=== PATIENT | male | born 1955 | race Caucasian/White ===

== ENCOUNTER 2020-10-30 09:37 | Outpatient (REF) | payer MEDICARE, SELFPAY ==
[2020-10-30 11:06] LABS: MANUAL DIFF FLAG NO
[2020-10-30 11:17] LABS: Basophils Absolute Auto 0.1 X10*3/uL (0.0-0.2); Basophils Percent Auto 1.4 % (0-2); Eosinophils Absolute Auto 0.3 X10*3/uL (0.0-0.4); Eosinophils Percent Auto 8.2 % (0-4); Hematocrit 38.9 % (42-52); Hemoglobin 12.9 g/dl (14.0-18.0); Lymphocytes Absolute Auto 1.1 X10*3/uL (1.2-4.9); Lymphocytes Percent Auto 30.5 % (20-40); Mean Corpuscular HGB Conc 33.2 g/dl (31.0-36.0); Mean Corpuscular Hemoglobin 30.8 pg (27.0-33.0); Mean Corpuscular Volume 92.8 fL (80-98); Mean Platelet Volume 9.3 fL (9.4-12.4); Monocytes Absolute Auto 0.4 X10*3/uL (0.1-1.2); Monocytes Percent Auto 11.3 % (2-11); Neutrophils Absolute Auto 1.8 X10*3/uL (2.0-8.3); Neutrophils Percent Auto 48.6 % (45-73); Platelet Count 221 X10*3/uL (160-400); Red Blood Count 4.19 X10*6/uL (4.60-5.80); Red Cell Distribution Width 13.6 % (11.0-16.0); White Blood Count 3.6 X10*3/uL (4.8-10.8)
[2020-10-30 11:26] LABS: Estimated Average Glucose 108 mg/dL; Hemoglobin A1c % 5.4 %
[2020-10-30 11:40] LABS: Alanine Aminotransferase 24 U/L (0-40); Albumin Level 4.4 g/dL (3.5-5.0); Alkaline Phosphatase 38 U/L (39-117); Amylase 50 U/L (28-100); Anion Gap 11 (12-20); Aspartate Amino Transferase 28 U/L (5-37); Bilirubin Total 0.6 mg/dL (0.0-1.0); Blood Urea Nitrogen 15 mg/dL (9-16); Calcium 9.2 mg/dL (8.4-10.2); Carbon Dioxide 25 mmol/L (22-29); Chloride 107 mmol/L (96-108); Cholesterol 183 mg/dL; Estimated Glomerular Filt Rate > 60; Glucose Fasting 98 mg/dL (60-99); HDL Cholesterol 56 mg/dL; LDL Cholesterol Calculated 96 mg/dl; Lipase 47 U/L (8-78); Potassium 4.5 mmol/L (3.3-5.1); Sodium 138 mmol/L (135-145); Total Protein 7.2 g/dL (6.5-8.0); Triglycerides 157 mg/dL
[2020-10-30 12:01] LABS: Prostate Specific Antigen 1.46 ng/mL (<0.05-4.0)
== END 2020-10-30 09:38 | disposition home or self-care (01) ==
LOC: HO.MANLDS 09:37
PROVIDERS: PCP Internal Medicine; Visit Provider Physician Assistant
DX: Z12.5 Encounter for screening for malignant neoplasm of prostate (principal); I10 Essential (primary) hypertension; N40.0 Benign prostatic hyperplasia without lower urinary tract symptoms; E78.2 Mixed hyperlipidemia
CPT/HCPCS: 36415; 80053; 80061; 82150; 83036; 83690; 84153; 85025

== ENCOUNTER → 2020-11-09 10:05 | Outpatient (BNVA) | payer MEDICARE, SELFPAY | PROVIDERS: PCP Internal Medicine; Referring Provider Internal Medicine Gastroenterology; Visit Provider Surgery | DX: K43.9 Ventral hernia without obstruction or gangrene (principal) | CPT/HCPCS: 99202 ==

== ENCOUNTER 2020-11-21 09:16 | Day surgery (SDC) | payer MEDICARE, SELFPAY ==
[2020-11-15 13:09] VITALS: BMI 31.9
--- NOTE | 2020-11-20 08:27 | HO.ANESPROP2 ---
Documented by User: Perla Dunlap 11/20/20 08:28 HPI - Anesthesia Eval Consult details Narrative: 65yo M for Hernia Repair Ventral with Mesh PMFSH Active Problems Active Problems: All Active Problems (Updated 11/15/20 @ 13:05 by Kenya Langley) Ventral hernia (Acute) Past Medical History Medical History (Updated 11/15/20 @ 13:05 by Kenya Langley) Asthma GERD (gastroesophageal reflux disease) History of Mane's esophagus Hypercholesterolemia Hypertension Surgical History Surgical History (Updated 11/15/20 @ 13:02 by Kenya Langley) H/O colonoscopy History of deviated nasal septum History of esophagogastroduodenoscopy (EGD) Hx of cataract surgery Social History Social History Alcohol intake: current Alcohol intake frequency: holidays/special occasions only Patient Tobacco Use Status: Never used Tobacco Second Hand Smoke Exposure: No Use of substances other than those prescribed or required for medical reasons: No Are you DNR?: No Advance Directives: No Advance Directives Information Provided: Yes Advance Directives on File: No Meds Allergies Allergy/AdvReac Type Severity Reaction Status Date / Time No Known Allergies Allergy Unverified 09/25/20 12:35 Home Medications Medication Instructions Recorded Confirmed Last Taken Type albuterol sulfate 90 mcg/actuation 90 mcg INHALATION Q4H PRN 11/09/20 11/15/20 Unknown History aerosol inhaler lansoprazole 30 mg capsule,delayed 30 mg PO DAILY 11/09/20 11/15/20 Unknown History release lisinopril 5 mg tablet 5 mg PO DAILY 11/09/20 11/15/20 11/21/20 History lorazepam 0.5 mg tablet 0.5 mg PO BID PRN 11/09/20 11/15/20 Unknown History montelukast 10 mg tablet 10 mg PO DAILY 11/09/20 11/15/20 Unknown History simvastatin 40 mg tablet 40 mg PO BEDTIME 11/09/20 11/15/20 Unknown History Exam Exam Date and Time: November 20, 202027 Height,Weight and Vital Signs: Height 5 ft 9 in Weight 98.2 kg Pertinent Lab Results Pertinent Lab Results: Laboratory Tests 10/30/20 10/30/20 09:42 09:42 WBC 3.6 L Hgb 12.9 L Hct 38.9 L Plt Count 221 Sodium 138 Potassium 4.5 Chloride 107 Carbon Dioxide 25 BUN 15 Creatinine 0.89 Assessment and Plan Assessment Anesthesia Assessment: Chart Reviewed Documented by User: Robert Thibodeaux MD 11/21/20 11:04 [facility] Past Medical History Medical History (Updated 11/15/20 @ 13:05 by Kenya Langley) Asthma GERD (gastroesophageal reflux disease) History of Mane's esophagus Hypercholesterolemia Hypertension Family History Family history of problems with anesthesia: No Surgical History Surgical History (Updated 11/15/20 @ 13:02 by Kenya Langley) H/O colonoscopy History of deviated nasal septum History of esophagogastroduodenoscopy (EGD) Hx of cataract surgery History of Problems with Anesthesia: No Social History Social History Alcohol intake: current Alcohol intake frequency: holidays/special occasions only Patient Tobacco Use Status: Never used Tobacco Second Hand Smoke Exposure: No Use of substances other than those prescribed or required for medical reasons: No Are you DNR?: No Advance Directives: No Advance Directives Information Provided: Yes Advance Directives on File: No Meds Allergies Allergy/AdvReac Type Severity Reaction Status Date / Time No Known Allergies Allergy Unverified 09/25/20 12:35 Home Medications Medication Instructions Recorded Confirmed Last Taken Type albuterol sulfate 90 mcg/actuation 90 mcg INHALATION Q4H PRN 11/09/20 11/15/20 Unknown History aerosol inhaler lansoprazole 30 mg capsule,delayed 30 mg PO DAILY 11/09/20 11/15/20 Unknown History release lisinopril 5 mg tablet 5 mg PO DAILY 11/09/20 11/15/20 11/21/20 History lorazepam 0.5 mg tablet 0.5 mg PO BID PRN 11/09/20 11/15/20 Unknown History montelukast 10 mg tablet 10 mg PO DAILY 11/09/20 11/15/20 Unknown History simvastatin 40 mg tablet 40 mg PO BEDTIME 11/09/20 11/15/20 Unknown History Exam Airway Mallampati Class: II TM Dist: <=3cm Neck ROM: Full Loose/Missing/Broken Teeth: No Heart: ok Lungs: clear Assessment and Plan Assessment Anesthesia Assessment: Anesthesia Plan Discussed and Chart Reviewed Final Anesthetic Review NPO: Yes ASA Class: II Final Preanesthetic Review: No Changes in Pt Med Stat, Meds/Allgs Chart Reviewed, Consent Obtained/Reviewed and Anes Risks/Benef Reviewed Patient Risk: Intermediate Procedure Risk: Low Anesthetic Plan Anesthetic Plan: GA and Agree w/ Assess. and Plan Disposition: Standard PACU
[2020-11-21] VITALS (8 sets, daily range): BP systolic 117–143; BP diastolic 64–80; PULSE 60–82; RESP 9–18; TEMP 36.7–36.9; O2SAT 96–97
[2020-11-21] MEDS: ceFAZolin Sodium/Dextrose,Iso 2 GM/50 ML PIGGYBACK IV (10:08)
[2020-11-21] MEDS: Lactated Ringers 1,000 ML 100 ML IVCONT (10:08)
--- NOTE | 2020-11-21 10:26 | MHC.SHP ---
Pre-Procedural Eval Section A Date of Service: 11/21/20 The patient is an INPATIENT: No Changes since office visit: Yes Patient answered all questions; No Cold of Flu in the past 2 weeks, No New Medical Problems and No Changes in Medication The History & Physical has been completed within 30 days and I have reviewed it.: Yes Section B Chief Complaint: Ventral Hernia Allergies: Allergies Allergy/AdvReac Type Severity Reaction Status Date / Time No Known Allergies Allergy Unverified 09/25/20 12:35 Plan Diagnosis/Plan: Unchanged I have reviewed the history and physical and performed a pertinent physical examination on my patient. No changes have occurred unless specified.
--- NOTE | 2020-11-21 11:37 | P.OP_ITS ---
Operative Note Operative Note Date of Service: 11/21/20 Narrative: Preoperative diagnosis: Ventral hernia Postoperative diagnosis: Same Procedure: Repair of ventral hernia with mesh Surgeon: Haroldo Hand MD Outside Barrel Lathe Operator: No physician Anesthesia: General LMA Indications for procedure: 65-year-old male patient presenting with a palpable lump above the umbilicus which increases in size with lifting and straining. Patient is found to have a palpable hernia which increases with Valsalva maneuvers and is reducible with light pressure. There is minimal tenderness to palpation. Operative findings: 4 cm ventral hernia located approximately 2 cm above the umbilicus repaired with an 8 cm round Ventralex mesh Specimen: None Estimated blood loss: 5 mL Complications: None Procedure details: Patient was brought to the OR placed in a supine position. After administering general anesthesia the patient's abdomen was prepped with ChloraPrep and draped in sterile fashion. A surgical time-out was called the consent confirmed. Patient received preoperative antibiotics and Venodyne boots were in place. Local anesthesia consisting of 0.25% Sensorcaine with epinephrine was infiltrated in the midline above the umbilicus. Incision was then made with a 15 blade and carried down through subcutaneous tissue up to the hernia sac. The hernia sac was then dissected down to the fascial defect. The hernia sac was reduced into the abdominal cavity. No bowel was noted within the hernia sac. A preperitoneal space was then created using combination of blunt sharp dissection. Hemostasis was assured using electrocautery. A space measuring approximately 8 cm round was then created. An 8 cm round Ventralex mesh was then obtained. This was placed in the preperitoneal space. Was secured in 4 quadrants using 1 Tycron suture. The fascia was then closed over the mesh incorporating the mesh in the closure using [id number] 1 Tycron suture wounds were then irrigated with saline solution suctioned dry. Additional local was infiltrated into the fascia and subcutaneous tissue. Deep subcutaneous tissue was closed using interrupted 3-0 Polysorb sutures. Dermis was reapproximated using interrupted 3-0 Polysorb sutures. Skin was then closed using a running subcuticular 4-0 Polysorb suture. Surgical glue was then applied. Dry sterile dressings were then applied. The patient tolerated the procedure well. Sponge, instrument, needle counts reported as correct. The patient was transferred to PACU in stable condition.
[2020-11-21] MEDS: Acetaminophen 325 MG TABLET 650 MG PO (11:54)
[2020-11-21] MEDS: oxyCODONE HCl Immed Release 5 MG TABLET 10 MG PO (11:55)
== END 2020-11-21 13:30 | disposition home or self-care (01) ==
PROVIDERS: PCP Internal Medicine; Visit Provider Surgery
PROC: (CPT 49560; principal; 2020-11-21 10:50)
DX: K43.9 Ventral hernia without obstruction or gangrene (principal); K21.9 Gastro-esophageal reflux disease without esophagitis; Z87.19 Personal history of other diseases of the digestive system; I10 Essential (primary) hypertension; J45.909 Unspecified asthma, uncomplicated; Z79.899 Other long term (current) drug therapy
CPT/HCPCS: 49560; 49568; C1781; J0690; J1100; J2405; J3010

== ENCOUNTER → 2020-11-30 10:38 | Outpatient (BNVA) | payer MEDICARE, SELFPAY | PROVIDERS: PCP Internal Medicine; Visit Provider Surgery | DX: Z48.815 Encounter for surgical aftercare following surgery on the digestive system (principal); L76.34 Postprocedural seroma of skin and subcutaneous tissue following other procedure; Z87.19 Personal history of other diseases of the digestive system | CPT/HCPCS: 99212 ==

== ENCOUNTER → 2020-12-13 15:41 | Outpatient (BNVA) | payer MEDICARE, SELFPAY | PROVIDERS: PCP Internal Medicine; Visit Provider Surgery | DX: Z48.815 Encounter for surgical aftercare following surgery on the digestive system (principal); Z87.19 Personal history of other diseases of the digestive system | CPT/HCPCS: 99212 ==

== ENCOUNTER → 2021-01-15 10:45 | Outpatient (BNVA) | payer MEDICARE, SELFPAY | PROVIDERS: PCP Internal Medicine; Visit Provider Surgery | DX: K43.9 Ventral hernia without obstruction or gangrene (principal); K22.70 Barrett's esophagus without dysplasia; K21.9 Gastro-esophageal reflux disease without esophagitis; E78.00 Pure hypercholesterolemia, unspecified; I10 Essential (primary) hypertension | CPT/HCPCS: 99212 ==

== ENCOUNTER → 2022-01-01 06:45 | Outpatient (REF) | payer MEDICARE, SELFPAY ==
--- NOTE | 2022-01-01 06:48 | HM_ITS ---
Conclusion: 1. Patient was monitored for total period of 2 days and 15 hours 2. Baseline rhythm is normal sinus with average heart of 75 beats per minute 3. No significant pauses or bradycardia noted 4. Seven short episodes of supraventricular runs, longest lasting 10 beats at 134 beats per minute 5. Rare ectopy, both PACs and PVCs noted 6. No patient reported events MTDD
[2022-01-01 07:27] LABS: MANUAL DIFF FLAG NO
[2022-01-01 07:52] LABS: Basophils Absolute Auto 0.1 X10*3/uL (0.0-0.2); Basophils Percent Auto 0.9 % (0-2); Eosinophils Absolute Auto 0.3 X10*3/uL (0.0-0.4); Eosinophils Percent Auto 6.1 % (0-4); Hematocrit 40.8 % (42.0-52.0); Hemoglobin 13.5 g/dl (14.0-18.0); Imm Gran Abs Auto 0.01 X10*3/uL (0.00-0.03); Imm Gran Pct Auto 0.2 % (0.0-0.4); Lymphocytes Absolute Auto 1.5 X10*3/uL (1.2-4.9); Lymphocytes Percent Auto 26.1 % (20-40); Mean Corpuscular HGB Conc 33.1 g/dl (31.0-36.0); Mean Corpuscular Hemoglobin 31.3 pg (27.0-33.0); Mean Corpuscular Volume 94.4 fL (80.0-98.0); Mean Platelet Volume 9.3 fL (9.4-12.4); Monocytes Absolute Auto 0.6 X10*3/uL (0.1-1.2); Monocytes Percent Auto 11.4 % (2-11); Neutrophils Absolute Auto 3.1 x10*3/uL (2.0-8.3); Neutrophils Percent Auto 55.3 % (45-73); Platelet Count 204 X10*3/uL (160-400); Red Blood Count 4.32 X10*6/uL (4.60-5.80); Red Cell Distribution Width 12.9 % (11.0-16.0); White Blood Count 5.6 X10*3/uL (4.8-10.8)
[2022-01-01 08:06] LABS: Alanine Aminotransferase 20 U/L (0-40); Albumin Level 4.1 g/dL (3.5-5.0); Alkaline Phosphatase 42 U/L (39-117); Anion Gap 13 (12-20); Aspartate Amino Transferase 26 U/L (5-37); Bilirubin Total 0.6 mg/dL (0.0-1.0); Blood Urea Nitrogen 16 mg/dL (9-16); Carbon Dioxide 28 mmol/L (22-29); Chloride 105 mmol/L (96-108); Cholesterol 191 mg/dL; Estimated Glomerular Filt Rate > 60; Glucose Random 98 mg/dL (60-115); HDL Cholesterol 65 mg/dL; LDL Cholesterol Calculated 105 mg/dl; Potassium 4.8 mmol/L (3.3-5.1); Sodium 141 mmol/L (135-145); Total Protein 7.2 g/dL (6.5-8.0); Triglycerides 106 mg/dL
== END ==
LOC: HO.CARD 06:45
PROVIDERS: PCP Internal Medicine; Visit Provider Physician Assistant
DX: R00.2 Palpitations (principal); E78.5 Hyperlipidemia, unspecified
CPT/HCPCS: 36415; 80053; 80061; 85025; 93242

== ENCOUNTER 2022-02-11 07:09 | Outpatient (REF) | payer MEDICARE, SELFPAY ==
[2022-02-11 08:47] LABS: Prostate Specific Antigen 1.32 ng/mL (<0.05-4.0)
== END 2022-02-11 07:10 | disposition home or self-care (01) ==
LOC: HO.LAB 07:09
PROVIDERS: Physician Assistant; PCP Internal Medicine; Visit Provider Internal Medicine
DX: Z12.5 Encounter for screening for malignant neoplasm of prostate (principal)
CPT/HCPCS: 36415; 84153

== ENCOUNTER → 2022-02-13 14:31 | Outpatient (BNVA) | payer MEDICARE, SELFPAY | PROVIDERS: PCP Internal Medicine; Referring Provider Physician Assistant; Visit Provider Internal Medicine | DX: R00.2 Palpitations (principal); I49.1 Atrial premature depolarization; I49.3 Ventricular premature depolarization | CPT/HCPCS: 93005; 99202 ==

== ENCOUNTER → 2022-04-10 08:21 | Outpatient (REF) | payer MEDICARE, SELFPAY ==
--- NOTE | 2022-04-10 08:24 | CA_ITS ---
Transthoracic Echocardiogram Patient (Last, First, Middle): Chris Zavala R Gender: Male Date of : 1955 Age: 67 Procedure Date: 04/10/2022 Procedure Type: Transthoracic Echocardiogram Location: OP Height: 175.26 cm Weight: 93.9 kg BSA: 2.10 m2 Heart Rate: bpm BP: 128 / 80 mmHg Chemical Plant Operator Supervisor: SHERI Referring MD: Wesley Roe MD Rodeo Clown: Danish Spain MD Symptoms: R00.2 - Palpitations Study Quality: Adequate ECG Rhythm: Sinus Conclusions: - 1. Normal LV systolic function with impaired relaxation filling pattern with possible basal inferior wall motion abnormality 2. Fibrocalcific aortic valve changes noted with moderate mitral and calcification with normal cardiac valvular Doppler 3. Normal RV systolic pressure 4. No gross pericardial effusion Findings Left Ventricle Normal left ventricular size, thickness, and systolic function. The visually estimated ejection fraction is between 60-65%. Spectral Doppler is indicative of an impaired relaxation filling pattern. E/E prime ratio is between 8 and 15 consistent with indeterminate filling pressures. Peak GLS is -21.1%, within normal limits. Wall Motion Rest Echo Findings The basal inferior segment is hypokinetic. All other scored wall segments showed normal motion. Right Ventricle Normal right ventricular cavity size and systolic function. Atria The left atrium is mildly dilated. There is lipomatous hypertrophy of the interatrial septum. There is no evidence of interatrial shunt. The right atrium is normal in size. Aortic Valve There is mild calcification of the aortic valve. There is no aortic valve stenosis. There is no aortic valve regurgitation. Mitral Valve There is mild anterior and moderate posterior mitral leaflet thickening. There is moderate mitral annular calcification. There is trace mitral valve regurgitation. There is no mitral valve stenosis. Tricuspid Valve Normal tricuspid valve structure. There is trace tricuspid valve regurgitation. The right ventricular systolic pressure is normal. The right ventricular systolic pressure is 20 mmHg. Normal right atrial pressure. There is no evidence of pulmonary hypertension. Great Vessels All visible segments of the aorta are normal in size. The pulmonary artery was not well visualized. Venous The inferior vena cava is normal in size and collapses greater than 50% with inspiration. Pericardium/Pleural There is no evidence of pericardial effusion. Prior Study Comparison No prior study available for comparison. Measurements 2D Linear Measurements IVSd: 0.93 0.6-0.9/0.6-1.0 cm LVIDd: 4.63 3.9-5.3/4.2-5.9 cm LVIDd Index: 2.20 2.4-3.2/2.2-3.1 cm/m2 LVIDs: 3.16 2.0-3.6 cm LVPWd: 0.85 0.7-1.1 cm LA Diam: 2.30 2.7-3.8/3.0-4.0 cm LAIDs Index: 1.10 1.5-2.3 cm/m2 LV Mass: 170.81 67-162/88-224 g LV Mass Index: 81.34 43-95/49-115 g/m2 LVOT Diam: 2.10 3.0+(-)1.3 cm 2D Systolic Function EF 4C: 59.40 >55% EF 2C: 61.80 >55% EF BiP: 61.10 >55% Mitral Valve MV Pk E: 1.10 MV PK A: 1.01 MV Decel Time: 239.00 E/A: 1.10 E'Lateral: 9.79 E'Medial: 8.81 E/E' Med: 12.50 E/E' Lat: 11.20 PHT: 70.00 MVA PHT: 3.14 Decel Summers: 4.59 Aortic Valve AoV Pk Juan: 1.69 AoV Mn Juan: 1.10 AoV VTI: 0.37 AoV Pk Grad: 11.00 Aov Mn Grad: 6.00 JAIME Cont.VTI: 2.81 LVOT LVOT Pk Juan: 1.24 LVOT Mn Juan: 0.88 LVOT VTI: 0.30 LVOT Pk Grad: 6.00 LVOT Mn Grad: 4.00 LVOT Diam: 2.10 LVOT Area: 3.46 Diastolic Function MV Pk E: 1.10 MV Pk A: 1.01 E/A: 1.10 E'Medial: 8.81 E/E' Med: 12.50 E' Laterial: 9.79 E/E' Lat: 11.20 Right Ventricle TAPSE (mm): 29.10 TVS' Juan: 16.60 Tricuspid Valve TR Pk Juan: 2.09 TR Pk Grad: 17.00 RA Press: 3.00 RVSP: 20.00 Great Vessels Aorta Sinus of Valsalva: 3.58 2.0-3.[address] [place]: 2.51 1.7-3.4 cm Ao Asc: 3.30 2.1-3.4 cm Updated in Other Vendor System with Status of Final Danish Spain MD electronically signed on 04/10/2022 9:36:04 AM with status of Final
== END ==
LOC: HO.CARD 08:21
PROVIDERS: Visit Provider Internal Medicine
DX: R00.2 Palpitations (principal)
CPT/HCPCS: 93306

== ENCOUNTER 2022-04-29 09:30 | Day surgery (SDC) | payer MEDICARE, SELFPAY ==
[2022-04-29 09:43] VITALS: BMI 30.2
[2022-04-29] MEDS: Lactated Ringers 1,000 ML 50 ML IVCONT (10:05)
--- NOTE | 2022-04-29 10:26 | P.CONAN_ITS ---
HPI - Anesthesia Eval Consult details Narrative: 67 yo make patient for EGD, Colonoscopy [facility] Active Problems Active Problems: All Active Problems (Updated 02/13/22 @ 15:24 by Wesley Roe MD) Ventral hernia (Acute) Seroma after procedure (Acute) Heart palpitations (Acute) PAC (premature atrial contraction) (Acute) PVC (premature ventricular contraction) (Acute) Increased BMI Past Medical History Medical History Asthma GERD (gastroesophageal reflux disease) History of Mane's esophagus Hypercholesterolemia Hypertension Family History Family History Brother Atrial fibrillation Father No problems noted. Mother No problems noted. Family history of problems with anesthesia: No Surgical History Surgical History H/O colonoscopy History of deviated nasal septum History of esophagogastroduodenoscopy (EGD) History of tonsillectomy Hx of cataract surgery S/P ventral herniorrhaphy (11/21/20) History of Problems with Anesthesia: No Social History Social History Alcohol intake: current Alcohol intake frequency: holidays/special occasions only Patient Tobacco Use Status: Former Tobacco user Quit Date: 1990 Years Smoked: 30 +/- Second Hand Smoke Exposure: No Are you DNR?: No Advance Directives: No Advance Directives Information Provided: Yes Nutrition Risks: No Nutritional Risk Meds Allergies Allergy/AdvReac Type Severity Reaction Status Date / Time No Known Allergies Allergy Verified 04/29/22 09:55 Active Medications: Current Medications Lactated Ringer's (Lr) 1,000 mls @ 50 mls/hr IVCONT .Q20H AMIRA Last Admin: 04/29/22 10:05 Dose: 50 mls/hr Home Medications Medication Instructions Recorded Confirmed Last Taken Type albuterol sulfate 90 mcg/actuation 90 mcg inhalation Q4H PRN Wheezing 11/09/20 04/29/22 Unknown History aerosol inhaler lansoprazole 30 mg capsule,delayed 30 mg PO DAILY 11/09/20 04/29/22 Unknown History release lisinopril 5 mg tablet 5 mg PO DAILY 07/07/0104/29/22 04/29/22 History lorazepam 0.5 mg tablet 0.5 mg PO BID PRN Anxiety 11/09/20 04/29/22 Unknown History montelukast 10 mg tablet 10 mg PO DAILY 11/09/20 04/29/22 Unknown History simvastatin 40 mg tablet 40 mg PO BEDTIME 11/09/20 04/29/22 Unknown History metoprolol succinate 25 mg 25 mg PO DAILY 02/13/22 04/29/22 Unknown History tablet,extended release 24 hr aspirin 81 mg tablet,delayed mg 04/28/22 04/28/22 04/22/22 History release Exam Exam Date and Time: April 29, 2022 1026 Height,Weight and Vital Signs: Height 5 ft 9 in Weight 92.986 kg Vital Signs Temp Pulse Resp BP Pulse Ox O2 Del Method 04/29/22 10:39 98.2 F 75 18 132/79 96 Room Air Airway Mallampati Class: II TM Dist: >3cm Neck ROM: Full Loose/Missing/Broken Teeth: No (Denies broken, loose, missing teeth) Heart: RRR Lungs: CTAB Assessment and Plan Assessment Anesthesia Assessment: Anesthesia Plan Discussed and Chart Reviewed Final Anesthetic Review Family History of Problems with Anesthesia: No History of Problems with Anesthesia: No NPO: Yes ASA Class: II Final Preanesthetic Review: No Changes in Pt Med Stat, Meds/Allgs Chart Reviewed, Consent Obtained/Reviewed and Anes Risks/Benef Reviewed Patient Risk: Intermediate Procedure Risk: Low Assessment/Block/Sedation in SS: Assess/Block/Sedation-SS Anesthetic Plan Anesthetic Plan: MAC: Disposition: Standard PACU
[2022-04-29 10:39] VITALS: BP 132/79; PULSE 75; RESP 18; TEMP 36.8; O2SAT 96
--- NOTE | 2022-04-29 10:50 | P.HPSUR_ITS ---
Pre-Procedural Eval Section A Date of Service: 04/29/22 Section B Chief Complaint: Mane's esophagus without dysplasia,screening Details of Present Illness: see H*P no changes Relevant Family History (Specify if Yes): No Relevant Social History: None Present Medications: see Short Stay Collaborative assessment Medical History: No relevant PMH History of Previous Operations: No relevant previous surgery Allergies: Allergies Allergy/AdvReac Type Severity Reaction Status Date / Time No Known Allergies Allergy Verified 04/29/22 09:55 Review of Systems Sugical H&P ROS: Negative: Constitution, Cardiovascular, Respiratory, Neurologi alvina, Psychiatric, Hem-Onc, Allergic/Immunologic, Gastrointestinal, Genitourinary, Musculoskeletal, Integumentary, Endocrine and Eyes/Ears/Nose/Throat Exam Surgical H&P Exam: Normal: HEENT, Normal: Heart, Normal: Lungs, Normal: Extremities, Normal: Abdomen, Normal: Skin and Normal: Neurological Plan Diagnosis/Plan: Unchanged I have reviewed the history and physical and performed a pertinent physical examination on my patient. No changes have occurred unless specified. Time Spent With Patient Time: Total time managing care of this patient today ____ minutes.
--- NOTE | 2022-04-29 11:41 | P.BOP_ITS ---
Brief Operative Note Date of Service: 04/29/22 Pre-op diagnosis: barretts, screening Post-op diagnosis: same Surgeon: Vladislav Vizcaino Anesthesia: MAC Was an Table Machine Operator used for this Procedure?: No Estimated blood loss (mL): 5 Pathology: other Condition: stable Disposition: PACU
[2022-04-29 11:45] VITALS: BP 56/33; PULSE 73; RESP 14; TEMP 36.2; O2SAT 94
[2022-04-29 11:47] VITALS: BP 59/32; PULSE 69; RESP 17; O2SAT 93
[2022-04-29 11:49] VITALS: BP 95/46; PULSE 83; RESP 19; O2SAT 96
[2022-04-29 11:53] VITALS: BP 106/53; PULSE 82; RESP 19; O2SAT 98
[2022-04-29 11:59] VITALS: BP 131/66; PULSE 87; RESP 17; TEMP 36.2; O2SAT 94
--- NOTE | 2022-04-29 12:05 | OP_ITS ---
SURGEON: Vladislav Vizcaino MD INDICATIONS: 1. Mane esophagus. 2. Colon cancer screening and prior history of colon polyps. PREOPERATIVE DIAGNOSIS: POSTOPERATIVE DIAGNOSIS: PROCEDURE PERFORMED: Upper endoscopy with biopsy, colonoscopy to the cecum with snare polypectomy and biopsy. ESTIMATED BLOOD LOSS: COMPLICATIONS: ANESTHESIA: Monitored anesthesia care. ASSISTANTS: SPECIMENS: DESCRIPTION OF PROCEDURE: The history and physical was performed. The risks and benefits of the procedure were explained to the patient. Informed consent was obtained. The patient was placed in the left lateral decubitus position. The Olympus video gastroscope was introduced into the esophagus, stomach, and duodenum. Examination was performed. The scope was removed. He was repositioned for colonoscopy. A digital rectal exam was performed, and was found to be normal. The Olympus pediatric video colonoscope was introduced into the rectum and advanced to the cecum without difficulty. The cecum was identified by transillumination, palpation, and identification of the ileocecal valve. Examination was performed. The scope was removed. He tolerated both procedures well, was returned to the recovery area in stable condition. FINDINGS: The procedure was performed on April 29, 2022. Upper endoscopy: 1. Esophagus: The esophagus showed a short-segment of Mane esophagus with no raised lesions or ulcerated areas. Biopsies were obtained at 32 cm, 30 cm, and 28 cm in all 4 quadrants. There was a moderately large hiatal hernia. 2. Stomach: The stomach was otherwise normal. 3. Duodenum: The bulb and second portion were normal. Colonoscopy: The terminal ileum was not examined. The visualized colonic mucosa was normal. There was liquid stool coating the mucosa limiting the sensitivity examination for detection of small polyps. This was washed and suctioned. In the cecum, was a less than 5 mm sessile polyp, and above this in the right colon were 3 polyps measuring less than 5 mm, which were removed with biopsy forceps. At 80 cm was an 8 mm polyp, was removed with a hot snare. There was mild sigmoid diverticulosis. No other polyps were identified. Retroflexed examination showed large internal hemorrhoids. IMPRESSION: 1. Mane esophagus. 2. Hiatal hernia. 3. Colon polyps. RECOMMENDATION: Follow up biopsy results. MD LOUISE Saavedra/DERRELL / [phone]
== END 2022-04-29 13:28 | disposition home or self-care (01) ==
PROVIDERS: PCP Internal Medicine; Visit Provider Internal Medicine Gastroenterology
PROC: (CPT 45385; principal; 2022-04-29 10:50)
DX: Z12.11 Encounter for screening for malignant neoplasm of colon (principal); Z86.010 Personal history of colon polyps; D12.0 Benign neoplasm of cecum; D12.2 Benign neoplasm of ascending colon; D12.4 Benign neoplasm of descending colon; K57.30 Diverticulosis of large intestine without perforation or abscess without bleeding; K64.8 Other hemorrhoids; K22.70 Barrett's esophagus without dysplasia; K21.9 Gastro-esophageal reflux disease without esophagitis; K44.9 Diaphragmatic hernia without obstruction or gangrene; I10 Essential (primary) hypertension; E78.00 Pure hypercholesterolemia, unspecified; J45.909 Unspecified asthma, uncomplicated; Z79.51 Long term (current) use of inhaled steroids; Z79.82 Long term (current) use of aspirin; Z79.899 Other long term (current) drug therapy; Z86.19 Personal history of other infectious and parasitic diseases; Z87.891 Personal history of nicotine dependence
CPT/HCPCS: 45385; 45380; 43239; 88305; J2370

== ENCOUNTER → 2022-11-04 09:16 | Outpatient (BNVA) | payer MEDICARE, SELFPAY | PROVIDERS: PCP Internal Medicine; Referring Provider Internal Medicine; Visit Provider Internal Medicine | DX: I49.1 Atrial premature depolarization (principal); I49.3 Ventricular premature depolarization; I10 Essential (primary) hypertension; R00.2 Palpitations; Z79.899 Other long term (current) drug therapy | CPT/HCPCS: 99212 ==

== ENCOUNTER → 2022-11-14 09:14 | Outpatient (REF) | payer MEDICARE, SELFPAY ==
--- NOTE | ~2022-11-14 | NM_ITS ---
EXERCISE MYOCARDIAL PERFUSION STUDY INDICATION: Coronary disease, assess for ischemia TECHNIQUE: The patient was brought in for an exercise perfusion study on 11/14/2022. Patient performed exercise as per Myke protocol and was injected 30 mCi of sestamibi once target heart rate was achieved. Images were obtained using the SPECT gamma camera interlaced with the gating device. Images were obtained in supine position. Resting perfusion study was performed on 11/18/2022. Patient was administered 30 mCi of sestamibi intravenously at rest. Images were then obtained in supine position. Images were processed with the software and compared side to side in short axis, horizontal long axis and vertical long axis views. Total DLP 85mGy-cm. FINDINGS: Raw images were reviewed. The stress perfusion study showed diminished tracer uptake along the inferior wall towards the basal part. There is significant improvement with CT attenuation correction the distal of diaphragmatic attenuation artifact. The gated study shows normal LV systolic function with calculated LVEF of 65%. LV cavity is normal in size. The gated study shows normal wall thickening and contraction of segments. Resting study shows diminished tracer uptake along the inferior wall. There is also diminished tracer uptake in the apical anterior wall, possibly artifactual. Gating at rest reveals normal wall motion with ejection fraction at 73%. The findings are consistent with fixed basal inferior defect suspected to be from diaphragmatic attenuation artifact. No reversible defects. NM/NM virgil perf SPECT rest & str IMPRESSION: 1. Myocardial perfusion imaging study shows no clear evidence of any ischemia or infarction. 2. Gated LVEF is 64% during stress and 70% during rest. 3. Transient ischemic dilatation not present. EKG component of the test reported separately.
== END ==
LOC: HO.CARD 09:14
PROVIDERS: PCP Internal Medicine; Visit Provider Internal Medicine
DX: I25.10 Atherosclerotic heart disease of native coronary artery without angina pectoris (principal); R93.1 Abnormal findings on diagnostic imaging of heart and coronary circulation
CPT/HCPCS: 78452; 93017; A9500

== ENCOUNTER → 2022-11-14 09:16 | Outpatient (BNV) | payer MEDICARE, SELFPAY | PROVIDERS: PCP Internal Medicine; Visit Provider Nurse Practitioner Family | DX: R06.02 Shortness of breath (principal); I25.10 Atherosclerotic heart disease of native coronary artery without angina pectoris | CPT/HCPCS: 78452; 93016; 93018 ==

== ENCOUNTER 2022-12-23 07:50 | Outpatient (REF) | payer MEDICARE, SELFPAY ==
[2022-12-23 13:33] LABS: MANUAL DIFF FLAG NO
[2022-12-23 14:01] LABS: Basophils Percent Auto 0.9 % (0-2); Eosinophils Absolute Auto 0.3 X10*3/uL (0.0-0.4); Eosinophils Percent Auto 7.3 % (0-4); Hematocrit 40.1 % (42.0-52.0); Hemoglobin 12.8 g/dl (14.0-18.0); Imm Gran Abs Auto 0.01 X10*3/uL (0.00-0.03); Imm Gran Pct Auto 0.2 % (0.0-0.4); Lymphocytes Absolute Auto 1.3 X10*3/uL (1.2-4.9); Lymphocytes Percent Auto 28.4 % (20-40); Mean Corpuscular HGB Conc 31.9 g/dl (31.0-36.0); Mean Corpuscular Hemoglobin 30.8 pg (27.0-33.0); Mean Corpuscular Volume 96.4 fL (80.0-98.0); Mean Platelet Volume 9.9 fL (9.4-12.4); Monocytes Absolute Auto 0.5 X10*3/uL (0.1-1.2); Monocytes Percent Auto 12.3 % (2-11); Neutrophils Absolute Auto 2.2 x10*3/uL (2.0-8.3); Neutrophils Percent Auto 50.9 % (45-73); Platelet Count 220 X10*3/uL (160-400); Red Blood Count 4.16 X10*6/uL (4.60-5.80); Red Cell Distribution Width 12.9 % (11.0-16.0); White Blood Count 4.4 X10*3/uL (4.8-10.8)
[2022-12-23 14:17] LABS: Alanine Aminotransferase 21 U/L (0-40); Albumin Level 4.1 g/dL (3.5-5.0); Alkaline Phosphatase 35 U/L (39-117); Anion Gap 9 (12-20); Aspartate Amino Transferase 27 U/L (5-37); Bilirubin Total 0.5 mg/dL (0.0-1.0); Blood Urea Nitrogen 14 mg/dL (9-16); Calcium 9.6 mg/dL (8.4-10.2); Carbon Dioxide 28 mmol/L (22-29); Chloride 107 mmol/L (96-108); Cholesterol 184 mg/dL; Estimated Glomerular Filt Rate > 60; Glucose Random 95 mg/dL (60-115); HDL Cholesterol 53 mg/dL; LDL Cholesterol Calculated 101 mg/dl; Potassium 5.1 mmol/L (3.3-5.1); Sodium 139 mmol/L (135-145); Total Protein 7.4 g/dL (6.5-8.0); Triglycerides 150 mg/dL
== END 2022-12-23 07:51 | disposition home or self-care (01) ==
LOC: HO.MANLDS 07:50
PROVIDERS: Visit Provider Physician Assistant
DX: E78.2 Mixed hyperlipidemia (principal)
CPT/HCPCS: 36415; 80053; 80061; 85025

== ENCOUNTER 2023-01-26 11:11 | Outpatient (REF) | payer MEDICARE, SELFPAY ==
[2023-01-26 11:40] VITALS: BMI 29.4
[2023-01-26 11:42] VITALS: BP 135/84; PULSE 86; RESP 16; TEMP 36.7; O2SAT 98
== END 2023-01-26 11:12 | disposition home or self-care (01) ==
LOC: HO.MS 11:11
PROVIDERS: PCP Internal Medicine; Visit Provider Ophthalmology
PROC: (CPT 66821; principal; 2023-01-26 13:20)
DX: H26.491 Other secondary cataract, right eye (principal); I10 Essential (primary) hypertension
CPT/HCPCS: 66821

== ENCOUNTER 2023-03-30 10:54 | Outpatient (REF) | payer MEDICARE, SELFPAY ==
[2023-03-30 11:05] VITALS: BMI 30.3
[2023-03-30 11:06] VITALS: BP 174/87; PULSE 66; RESP 18; TEMP 36.5; O2SAT 97
== END 2023-03-30 10:55 | disposition home or self-care (01) ==
LOC: HO.MS 10:54
PROVIDERS: PCP Internal Medicine; Visit Provider Ophthalmology
PROC: (CPT 66821; principal; 2023-03-30 13:40)
DX: H26.492 Other secondary cataract, left eye (principal); I10 Essential (primary) hypertension
CPT/HCPCS: 66821

== ENCOUNTER 2024-04-06 07:42 | Outpatient (REF) | payer MEDICARE, SELFPAY ==
[2024-04-06 13:12] LABS: MANUAL DIFF FLAG NO
[2024-04-06 13:35] LABS: Eosinophils Absolute Auto 0.3 X10*3/uL (0.0-0.4); Eosinophils Percent Auto 6.7 % (0-4); Hematocrit 34.7 % (42.0-52.0); Hemoglobin 10.6 g/dl (14.0-18.0); Lymphocytes Absolute Auto 1.2 X10*3/uL (1.2-4.9); Lymphocytes Percent Auto 30.9 % (20-40); Mean Corpuscular HGB Conc 30.5 g/dl (31.0-36.0); Mean Corpuscular Hemoglobin 25.1 pg (27.0-33.0); Mean Corpuscular Volume 82.2 fL (80.0-98.0); Mean Platelet Volume 9.8 fL (9.4-12.4); Monocytes Absolute Auto 0.4 X10*3/uL (0.1-1.2); Monocytes Percent Auto 11.1 % (2-11); Neutrophils Percent Auto 50.3 % (45-73); Platelet Count 272 X10*3/uL (160-400); Red Blood Count 4.22 X10*6/uL (4.60-5.80); Red Cell Distribution Width 17.2 % (11.0-16.0); White Blood Count 3.9 X10*3/uL (4.8-10.8)
[2024-04-06 13:37] LABS: Estimated Average Glucose 117 mg/dL; Hemoglobin A1C 104.7183 umol/L; Hemoglobin A1c % 5.7 % (<6.0); Total Hemoglobin (HGBA1C) 2670.4751 umol/L
[2024-04-06 13:59] LABS: Prostate Specific Antigen 1.57 ng/mL (<0.05-4.0)
[2024-04-06 14:06] LABS: Alanine Aminotransferase 21 U/L (0-40); Albumin Level 4.1 g/dL (3.5-5.0); Anion Gap 13 (12-20); Aspartate Amino Transferase 32 U/L (5-37); Bilirubin Total 0.4 mg/dL (0.0-1.0); Blood Urea Nitrogen 16 mg/dL (9-16); Calcium 9.1 mg/dL (8.4-10.2); Carbon Dioxide 23 mmol/L (22-29); Chloride 108 mmol/L (96-108); Cholesterol 166 mg/dL (<200); Estimated Glomerular Filt Rate > 60; Glucose Random 96 mg/dL (60-115); HDL Cholesterol 48 mg/dL (>40); LDL Cholesterol Calculated 98 mg/dL (<100); Potassium 4.3 mmol/L (3.3-5.1); Sodium 140 mmol/L (135-145); Total Protein 7.2 g/dL (6.5-8.0); Triglycerides 100 mg/dL (<150)
[2024-04-06 14:36] LABS: Alkaline Phosphatase 39 U/L (39-117)
== END 2024-04-06 07:43 | disposition home or self-care (01) ==
LOC: HO.MANLDS 07:42
PROVIDERS: Visit Provider Physician Assistant
DX: E78.2 Mixed hyperlipidemia (principal); Z13.1 Encounter for screening for diabetes mellitus; Z12.5 Encounter for screening for malignant neoplasm of prostate
CPT/HCPCS: 36415; 80053; 80061; 83036; 84153; 85025

== ENCOUNTER 2024-10-26 06:06 | Outpatient (REF) | payer MEDICARE, SELFPAY ==
[2024-10-26 06:33] LABS: MANUAL DIFF FLAG NO
[2024-10-26 07:15] LABS: Basophils Absolute Auto 0.1 X10*3/uL (0.0-0.2); Basophils Percent Auto 1.3 % (0-2); Eosinophils Absolute Auto 0.3 X10*3/uL (0.0-0.4); Eosinophils Percent Auto 7.2 % (0-4); Hematocrit 42.3 % (42.0-52.0); Hemoglobin 13.7 g/dl (14.0-18.0); Lymphocytes Absolute Auto 1.5 X10*3/uL (1.2-4.9); Lymphocytes Percent Auto 32.7 % (20-40); Mean Corpuscular HGB Conc 32.4 g/dl (31.0-36.0); Mean Corpuscular Hemoglobin 29.7 pg (27.0-33.0); Mean Corpuscular Volume 91.8 fL (80.0-98.0); Monocytes Absolute Auto 0.5 X10*3/uL (0.1-1.2); Neutrophils Absolute Auto 2.1 x10*3/uL (2.0-8.3); Neutrophils Percent Auto 47.8 % (45-73); Platelet Count 226 X10*3/uL (160-400); Red Blood Count 4.61 X10*6/uL (4.60-5.80); Red Cell Distribution Width 15.5 % (11.0-16.0); White Blood Count 4.5 X10*3/uL (4.8-10.8)
[2024-10-26 07:44] LABS: Alanine Aminotransferase 32 U/L (0-40); Albumin Level 4.2 g/dL (3.5-5.0); Alkaline Phosphatase 38 U/L (39-117); Anion Gap 13 (12-20); Aspartate Amino Transferase 33 U/L (5-37); Bilirubin Total 0.3 mg/dL (0.0-1.0); Blood Urea Nitrogen 13 mg/dL (9-16); Calcium 9.4 mg/dL (8.4-10.2); Carbon Dioxide 25 mmol/L (22-29); Chloride 108 mmol/L (96-108); Cholesterol 180 mg/dL (<200); Estimated Glomerular Filt Rate > 60; Glucose Random 95 mg/dL (60-115); HDL Cholesterol 47 mg/dL (>40); Iron 65 mcg/dL (45-160); LDL Cholesterol Calculated 107 mg/dL (<100); Percent Iron Saturation 19 % (15-50); Potassium 4.8 mmol/L (3.3-5.1); Sodium 141 mmol/L (135-145); Total Iron Binding Capacity 351 mcg/dL (228-428); Total Protein 7.3 g/dL (6.5-8.0); Triglycerides 134 mg/dL (<150); Unsaturated Iron Binding 286 ug/dL
[2024-10-26 07:54] LABS: Prostate Specific Antigen 2.43 ng/mL (<0.05-4.0)
[2024-10-26 08:01] LABS: Ferritin 15 ng/mL (20-250)
[2024-10-26 08:08] LABS: Folate 11.6 ng/mL (> or = 4.0); Vitamin B12 527 pg/mL (200-900)
== END 2024-10-26 06:07 | disposition home or self-care (01) ==
LOC: HO.LAB 06:06
PROVIDERS: PCP Physician Assistant; Visit Provider Physician Assistant
DX: D64.9 Anemia, unspecified (principal); N40.0 Benign prostatic hyperplasia without lower urinary tract symptoms; I10 Essential (primary) hypertension; E78.2 Mixed hyperlipidemia; Z12.5 Encounter for screening for malignant neoplasm of prostate
CPT/HCPCS: 36415; 80053; 80061; 82607; 82728; 82746; 83540; 84153; 85025

== ENCOUNTER 2024-12-20 07:52 | Day surgery (SDC) | payer MEDICARE, SELFPAY ==
--- OUTSIDE RECORDS SUMMARY | 2024-11-03 09:26 | XMS_ITS | Patient Health Record ---
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 Name Role Phone Yazan Chand Primary Care Provider Vladislav Prakash Jr [phone] Allergies No Known Allergies Reason For Referral No Information Medications Medication SIG (Take, Route, Frequency, Duration) Notes Start Date End Date Status Lisinopril 5 MG TAKE 1 TABLET BY JOSE TH EVERY DAY Oral for 90 Active Aspirin 81 81 MG 1 tablet Orally Once a day for 30 day(s) Active Lansoprazole 30 MG 1 capsule Orally Onc e a day for 30 day(s) Active Albuterol Sulfate 108 (90 Base) MCG/ACT 1 puff as needed Inhalation every 4 hrs Active Metoprolol Succinate ER 25 MG 1 tablet Orally Once a day for 30 day(s) Active Simvastatin 40 MG 1 tablet 1 tablet Or ally Once a day Active Singulair 10 MG 1 tablet Orally Once a day Active Montelukast Sodium 10 MG 1 tablet Orally Once a day for 30 day(s) Active Immunizations Vaccine Route Administration Date Status Comme nts Influenza Unknown 02/08/2019 Administered Influenza Unknown 01/10/2020 Administered Influenza Unknown 03/18/2022 Administered Influenza Unknown 03/03/2023 Administered Influenza Unknown 01/26/2024 Administered Social History Tobacco Use: Social History Observation Description Date Details (start date - stop date) Former Smoker NA - NA Tobacco Use/Smoking Question Answer Notes Patient is a former smoker When did you stop smoking? 1989 Alcohol Screen Question Answer Notes Did you have a drink contain ing alcohol in the past year? Yes How often did you have a dri nk containing alcohol in the past year? 2 to 4 times a month (2 points) How many drinks did you have on a typical day when you were drinking in the past year? 10 or more drinks (4 points) How often did you have 6 or more drinks on one occasion in the past year? Weekly (3 points) Points 9 Interpretation Positive Section Notes: Does not smoke; he occasiona lly drinks alcohol. Does not smoke; he occasiona lly drinks alcohol. Does not smoke; he occasiona lly drinks alcohol. Does not smoke; he occasiona lly drinks alcohol. Does not smoke; he occasiona lly drinks alcohol. Does not smoke; he occasiona lly drinks alcohol. Does not smoke; he occasiona lly drinks alcohol. Does not smoke; he occasiona lly drinks alcohol. 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 Vital Signs Temperature 97.8 degrees Fahrenheit 10/26/2024 Blood pressure diastolic 01 mm Hg 10/26/2024 Height 70.50 in 10/26/2024 Blood pressure systolic 001 mm Hg 10/26/2024 Weight 220.8 lbs 10/26/2024 BMI 31.23 kg/m2 10/26/2024 Encounters Encounter Location Date Provider Diagnosis [facility] [address] [place] [address] 10/26/2024 Vladislav Vizcaino Jr Barretts esophagus without dysplasia K22.70 and Screening for colon cancer Z12.11 Assessments Encounter Date Diagnosis (ICD Code) Assessment Notes Treatment Notes Treatment Clinical Notes Section Notes 10/26/2024 Barretts esophagus without dysplasia (ICD-10 - K22.70) We discussed gastroesophageal reflux disease today. We discussed Mane's esophagus. We recommended he continue treatment with lansoprazole. We will see him in follow-up for endoscopy and colonoscopy. He is aware of risks and benefits and agrees to proceed. He is advised to stop aspirin 1 week before the procedure. 10/26/2024 Screening for colon cancer (ICD-10 - Z12.11) We discussed gastroesophageal reflux disease today. We discussed Mane's esophagus. We recommended he continue treatment with lansoprazole. We will see him in follow-up for endoscopy and colonoscopy. He is aware of risks and benefits and agrees to proceed. He is advised to stop aspirin 1 week before the procedure. Plan Of Treatment Future Test Test Name Order Date UPPER GI ENDOSCOPY 05/27/2013 COLONOSCOPY 05/27/2013 UPPER GI ENDOSCOPY 01/07/2017 COLONOSCOPY 01/07/2017 UPPER GI ENDOSCOPY 03/31/2022 COLONOSCOPY 03/31/2022 UPPER GI ENDOSCOPY 10/26/2024 COLONOSCOPY 10/26/2024 Next Appt Details Provider Name:Vladislav mayfield Jr, 12/20/2024 10:30:00 AM, [address] [place] [address], [phone], Insurance Providers Payer Name Payer Address Payer Phone Subscriber Number Group Number Insured Name Patient Relationship to Insured Coverage Start Date Coverage End Date MEDICARE OF [place] [address] [place] [address] [id number] HORTENSIA EARL Self - patient is the insured [employer] ATT[employer] CLAIMS [address] [place] [phone] [id number] [employer] EARL Self - patient is the insured Medical (General) History Medical History History ICD Code colonoscopy 04/29/22, multiple tubular a denomas, three-year colon recall. Mane's esophagus, last EGD 04/29/22, no dysplasia, 3-5 year followup Hyperlipidemia Asthma Hypertension Lyme disease Surgical History Surgery Date(Month/Year) hernia repair deviated septum cataract-lens implants tonsillectomy
[2024-12-16 13:34] VITALS: BMI 31.2
--- NOTE | 2024-12-19 12:23 | HO.ANESPROP2 ---
Documented by User: Perla Dunlap NP 12/19/24 12:27 HPI - Anesthesia Eval Consult details Narrative: 69yo M for Upper Endoscopy and Colonoscopy 2022 cardiac w/u for palps including echo and stress [facility] Active Problems Active Problems: All Active Problems Hypertension (Acute) Ventral hernia (Acute) Seroma after procedure (Acute) Heart palpitations (Acute) PAC (premature atrial contraction) (Acute) PVC (premature ventricular contraction) (Acute) Past Medical History Medical History (Updated 12/20/24 @ 08:11 by Deneen Vincent RN) Lyme disease Asthma GERD (gastroesophageal reflux disease) History of Mane's esophagus Hypercholesterolemia Hypertension Family History Family History Brother Atrial fibrillation Father No problems noted. Mother No problems noted. Family history of problems with anesthesia: No Surgical History Surgical History History of tonsillectomy S/P ventral herniorrhaphy (11/21/20) Hx of cataract surgery History of esophagogastroduodenoscopy (EGD) H/O colonoscopy History of deviated nasal septum History of Problems with Anesthesia: No Social History Social History Alcohol intake: current Alcohol intake frequency: holidays/special occasions only Patient Tobacco Use Status: Former Tobacco user Years Smoked: 30 +/- Second Hand Smoke Exposure: No Use of substances other than those prescribed or required for medical reasons: No Are you DNR?: No Advance Directives: No Advance Directives Information Provided: Yes Poor oral hygiene: No Meds Allergies Allergy/AdvReac Type Severity Reaction Status Date / Time No Known Allergies Allergy Verified 11/04/22 09:34 Home Medications ?Medication ?Instructions ?Recorded ?Confirmed ?Last Taken ?Type albuterol sulfate 90 mcg/actuation 90 mcg inhalation Q4H PRN Wheezing 11/09/20 12/16/24 Unknown History aerosol inhaler lansoprazole 30 mg capsule,delayed 30 mg PO DAILY 11/09/20 12/16/24 Unknown History release lisinopril 5 mg tablet 5 mg PO DAILY 11/09/20 12/16/24 04/29/22 History lorazepam 0.5 mg tablet 0.5 mg PO BID PRN Anxiety 11/09/20 12/16/24 Unknown History montelukast 10 mg tablet 10 mg PO DAILY 11/09/20 12/16/24 Unknown History simvastatin 40 mg tablet 40 mg PO BEDTIME 11/09/20 12/16/24 Unknown History metoprolol succinate 25 mg 25 mg PO DAILY 02/13/22 12/16/24 12/20/24 History tablet,extended release 24 hr aspirin 81 mg tablet,delayed 81 mg PO DAILY 04/28/22 12/16/24 04/22/22 History release Exam Height,Weight and Vital Signs: Height 5 ft 10.5 in Weight 100.153 kg Assessment and Plan Assessment Anesthesia Assessment: Chart Reviewed Final Anesthetic Review Family History of Problems with Anesthesia: No History of Problems with Anesthesia: No Documented by User: Dylan Lamar MD 12/20/24 09:01 [facility] Past Medical History Medical History (Updated 12/20/24 @ 08:11 by Deneen Vincent RN) Lyme disease Asthma GERD (gastroesophageal reflux disease) History of Mane's esophagus Hypercholesterolemia Hypertension Family History Family History Brother Atrial fibrillation Father No problems noted. Mother No problems noted. Surgical History Surgical History History of tonsillectomy S/P ventral herniorrhaphy (11/21/20) Hx of cataract surgery History of esophagogastroduodenoscopy (EGD) H/O colonoscopy History of deviated nasal septum Social History Social History Alcohol intake: current Alcohol intake frequency: holidays/special occasions only Patient Tobacco Use Status: Former Tobacco user Years Smoked: 30 +/- Second Hand Smoke Exposure: No Use of substances other than those prescribed or required for medical reasons: No Are you DNR?: No Advance Directives: No Advance Directives Information Provided: Yes Poor oral hygiene: No Meds Allergies Allergy/AdvReac Type Severity Reaction Status Date / Time No Known Allergies Allergy Verified 11/04/22 09:34 Home Medications ?Medication ?Instructions ?Recorded ?Confirmed ?Last Taken ?Type albuterol sulfate 90 mcg/actuation 90 mcg inhalation Q4H PRN Wheezing 11/09/20 12/16/24 Unknown History aerosol inhaler lansoprazole 30 mg capsule,delayed 30 mg PO DAILY 11/09/20 12/16/24 Unknown History release lisinopril 5 mg tablet 5 mg PO DAILY 11/09/20 12/16/24 04/29/22 History lorazepam 0.5 mg tablet 0.5 mg PO BID PRN Anxiety 11/09/20 12/16/24 Unknown History montelukast 10 mg tablet 10 mg PO DAILY 11/09/20 12/16/24 Unknown History simvastatin 40 mg tablet 40 mg PO BEDTIME 11/09/20 12/16/24 Unknown History metoprolol succinate 25 mg 25 mg PO DAILY 02/13/22 12/16/24 12/20/24 History tablet,extended release 24 hr aspirin 81 mg tablet,delayed 81 mg PO DAILY 04/28/22 12/16/24 04/22/22 History release Exam Airway Mallampati Class: III TM Dist: >3cm Neck ROM: Full Assessment and Plan Assessment Anesthesia Assessment: Anesthesia Plan Discussed Final Anesthetic Review NPO: Yes ASA Class: III Final Preanesthetic Review: No Changes in Pt Med Stat, Meds/Allgs Chart Reviewed, Consent Obtained/Reviewed, Anes Risks/Benef Reviewed and DNR Form (If Appl.) Patient Risk: Intermediate Procedure Risk: Low Anesthetic Plan Anesthetic Plan: TIVA Disposition: Standard PACU
[2024-12-20 08:15] VITALS: BMI 29.8
[2024-12-20 08:17] VITALS: BP 150/79; PULSE 63; RESP 16; TEMP 36.4; O2SAT 95
[2024-12-20] MEDS: Lactated Ringers 1,000 ML 100 ML IVCONT (08:33)
--- NOTE | 2024-12-20 09:16 | P.HPSUR_ITS ---
Pre-Procedural Eval Section A - 24 Hr Update-Section A only Date of Service: 12/20/24 Section B - Complete if H&P > 30 days Chief Complaint: Encounter for screening for malignant neoplasm of Details of Present Illness: see H&P no changes Relevant Family History (Specify if Yes): No Relevant Social History: None Present Medications: see Short Stay Collaborative assessment Medical History: No relevant PMH History of Previous Operations: No relevant previous surgery Allergies: Allergies Allergy/AdvReac Type Severity Reaction Status Date / Time No Known Allergies Allergy Verified 11/04/22 09:34 Review of Systems Sugical H&P ROS: Negative: Constitution, Cardiovascular, Respiratory, Neurological, Psychiatric, Hem-Onc, Allergic/Immunologic, Gastrointestinal, Genitourinary, Musculoskeletal, Integumentary, Endocrine and Eyes/Ears/No se/Throat Exam Surgical H&P Exam: Normal: HEENT, Normal: Heart, Normal: Lungs, Normal: Extremities, Normal: Abdomen, Normal: Skin and Normal: Neurological Plan Diagnosis/Plan: Unchanged I have reviewed the history and physical and performed a pertinent physical examination on my patient. No changes have occurred unless specified. Time Spent With Patient Time: Total time managing care of this patient today ____ minutes.
[2024-12-20 10:10] VITALS: BP 113/74; PULSE 67; RESP 20; TEMP 36.6; O2SAT 97
[2024-12-20 10:25] VITALS: BP 120/69; PULSE 68; RESP 16; TEMP 36.4; O2SAT 96
--- NOTE | 2024-12-20 10:50 | OP_ITS ---
DATE OF SERVICE: 12/20/2024 SURGEON: Vladislav Vizcaino MD INDICATIONS: Colon cancer screening, prior history of adenomatous colon polyps, and Mane's esophagus. PREOPERATIVE DIAGNOSIS: POSTOPERATIVE DIAGNOSIS: PROCEDURE PERFORMED: Upper endoscopy with biopsy, colonoscopy to the cecum with snare polypectomy. ESTIMATED BLOOD LOSS: COMPLICATIONS: ANESTHESIA: Monitored anesthesia care. ASSISTANTS: SPECIMENS: DESCRIPTION OF PROCEDURE: A history and physical was performed. The risks and benefits of the procedure were explained to the patient. Informed consent was obtained. The patient was placed in the left lateral decubitus position. The Olympus video gastroscope was introduced into the esophagus, stomach, and duodenum. Examination was performed. The scope was removed. He was repositioned for colonoscopy. A digital rectal exam was performed and was found to be normal. The Olympus pediatric video colonoscope was introduced into the rectum and advanced to the cecum. The cecum was identified by transillumination, palpation, and identification of ileocecal valve. Examination was performed. The scope was removed. He tolerated both procedures well and was returned to recovery area in stable condition. FINDINGS: Upper endoscopy: 1. Esophagus: The esophagus showed a short-segment of Mane esophagus. There was no evidence of raised lesions or ulcerated areas. Biopsies were obtained in all 4 quadrants every 2 cm. 2. Stomach: There was a small hiatal hernia. 3. Duodenum: The bulb and 2nd portion were normal. Colonoscopy: The terminal ileum was not examined. The visualized colonic mucosa was normal. The quality of the prep was good. Three polyps were identified and removed with a cold snare, all measured less than 5 mm. These were located at 70 cm, 45 cm, and 35 cm. There was moderate sigmoid diverticulosis. Retroflexed examination showed internal hemorrhoids. IMPRESSION: 1. Mane esophagus. 2. Colon polyps. RECOMMENDATION: Follow up the biopsy results. MD LOUISE Saavedra/DERRELL / [id number]
== END 2024-12-20 10:58 | disposition home or self-care (01) ==
PROVIDERS: PCP Physician Assistant; Visit Provider Internal Medicine Gastroenterology
PROC: (CPT 45385; principal; 2024-12-20 09:30)
DX: Z12.11 Encounter for screening for malignant neoplasm of colon (principal); D12.4 Benign neoplasm of descending colon; D12.5 Benign neoplasm of sigmoid colon; K57.30 Diverticulosis of large intestine without perforation or abscess without bleeding; Z86.0101 Personal history of adenomatous and serrated colon polyps; K22.70 Barrett's esophagus without dysplasia; K44.9 Diaphragmatic hernia without obstruction or gangrene; I10 Essential (primary) hypertension; E78.5 Hyperlipidemia, unspecified; J45.909 Unspecified asthma, uncomplicated; Z79.899 Other long term (current) drug therapy; Z79.02 Long term (current) use of antithrombotics/antiplatelets; Z79.82 Long term (current) use of aspirin
CPT/HCPCS: 45385; 43239; 88305; J2003; J2704